=== PATIENT | female | born 1995 | race Caucasian/White ===

== ENCOUNTER 2019-08-02 21:14 | Emergency (ER) | payer BC ==
[~2019-08-02] VITALS: Ht 165.1 cm; Wt 81.8 kg
[2019-08-02 21:22] VITALS: BP 140/81; TEMP 97.9
[2019-08-02] MEDS ORDERED: TRI-SPRINTEC 281 TAB (21:44)
[2019-08-02] MEDS ORDERED: WELLBUTRIN XL150 MG PO (21:47)
[2019-08-02] MEDS ORDERED: ALDACTONE 100M100 MG PO (21:48)
[2019-08-02] MEDS ORDERED: AMOXICILLIN 8751 TAB PO (22:20)
[2019-08-02 22:45] VITALS: PULSE 84
== END 2019-08-02 22:45 | disposition home or self-care (01) ==
LOC: COL.ER 21:14
DX: S61.551A Open bite of right wrist, initial encounter (principal); S60.211A Contusion of right wrist, initial encounter; W54.0XXA Bitten by dog, initial encounter; Y92.009 Unspecified place in unspecified non-institutional (private) residence as the place of occurrence of the external cause

== ENCOUNTER → 2020-01-17 | Outpatient (CLI) | payer BC, OTHER ==
[~2020-01-17] MED LIST: ALDACTONE 100M100 MG PO; AMOXICILLIN 8751 TAB PO; TRI-SPRINTEC 281 TAB; WELLBUTRIN XL150 MG PO
== END ==
LOC: COL.RAD 01-16 07:30
DX: N94.6 Dysmenorrhea, unspecified (principal)

== ENCOUNTER 2022-06-17 01:19 | Emergency (ER) | payer SELFPAY ==
[~2022-06-17] VITALS: Ht 165.1 cm; Wt 77.3 kg
[2022-06-17 01:39] VITALS: TEMP 98
[2022-06-17] MEDS ORDERED: AMOXICILLIN 8751 TAB PO (01:43)
[2022-06-17 01:58] VITALS: BP 122/78; PULSE 76
== END 2022-06-17 01:58 | disposition home or self-care (01) ==
LOC: COL.ER 01:19
DX: S61.201A Unspecified open wound of left index finger without damage to nail, initial encounter (principal); Z28.310 Unvaccinated for COVID-19; W55.01XA Bitten by cat, initial encounter